=== PATIENT | female | born 1960 | race Two or more races ===

== ENCOUNTER → 2016-11-27 | Outpatient (CLI) | payer OTHER | END | disposition home or self-care (01) | LOC: LAB 16:36 | PROVIDERS: ATTEND Internal Medicine | DX: E11.9 Type 2 diabetes mellitus without complications (principal) | CPT/HCPCS: 36415; 83036 ==

== ENCOUNTER → 2017-03-02 | Outpatient (CLI) | payer OTHER ==
[2017-03-02 07:43] LABS: Albumin 3.3 g/dL (3.4-5.0); Bilirubin, Total 0.3 mg/dL (0.2-1.0); Calcium 8.5 mg/dL (8.5-10.1); Potassium 3.9 mmol/L (3.5-5.1); Total Protein 7.8 g/dL (6.4-8.2)
[2017-03-02 07:45] LABS: Basophils # (auto) 0.1 uL; Basophils % (auto) 0.8 % (0.0-2.0); Eosinophils # (auto) 0.2 uL; Eosinophils % (auto) 1.8 % (0.0-7.0); Hematocrit 41.2 % (36.0-46.0); Hemoglobin 14.1 g/dL (12.2-16.2); Lymphocytes # (auto) 3.3 uL; Lymphocytes % (auto) 35.6 % (10.0-50.0); Mean Corpuscular Hemoglobin 29.8 pg (28.0-32.0); Mean Corpuscular Hgb Conc. 34.3 g/dL (32.0-36.0); Mean Corpuscular Volume 86.6 fL (80.0-100.0); Mean Platelet Volume 8.8 fL (7.4-10.4); Monocytes # (auto) 0.4 uL; Monocytes % (auto) 4.2 % (0.0-12.0); Neutrophils # (auto) 5.3 uL; Neutrophils % (auto) 57.6 % (37.0-80.0); Platelet Count (auto) 252 10^3/uL (140-450); Red Cell Distribution Width 13.8 % (11.6-16.0); White Blood Cell 9.2 10^3/uL (4.4-10.8)
[2017-03-02 08:05] LABS: Urine Bilirubin Negative (Negative); Urine Blood Negative /uL (Negative); Urine Color Yellow (Yellow); Urine Glucose Normal (Normal); Urine Ketone Negative (Negative); Urine Nitrite Negative (Negative); Urine RBC 12 /hpf (0 - 4); Urine Squamous Epithelial Cell FEW /hpf (<5); Urine Urobilinogen Normal (Negative)
== END | disposition home or self-care (01) ==
LOC: LAB 06:36
PROVIDERS: ATTEND Internal Medicine
DX: E11.9 Type 2 diabetes mellitus without complications (principal); E11.40 Type 2 diabetes mellitus with diabetic neuropathy, unspecified
CPT/HCPCS: 36415; 80053; 80061; 81001; 82043; 82607; 83036; 84439; 84443; 85025; 85652

== ENCOUNTER → 2017-06-25 | Outpatient (CLI) | payer OTHER | END | disposition home or self-care (01) | LOC: LAB 15:13 | PROVIDERS: ATTEND Internal Medicine | DX: E10.9 Type 1 diabetes mellitus without complications (principal) | CPT/HCPCS: 36415; 83036; 84439; 84443 ==

== ENCOUNTER → 2018-11-01 | Outpatient (CLI) | payer OTHER ==
[2018-11-01 17:02] LABS: Alanine Aminotransferase 46 U/L (13-56); Aspartate Aminotransferase 38 U/L (15-37)
[2018-11-01 17:10] LABS: Free T4 (Free Thyroxine) 1.07 ng/dL (0.89-1.76)
[2018-11-01 17:11] LABS: Follicle Stimulating Hormone 76.56 IU/L (SEE BELOW)
== END | disposition home or self-care (01) ==
LOC: LAB 16:06
PROVIDERS: ATTEND Internal Medicine
DX: E03.9 Hypothyroidism, unspecified (principal); K76.0 Fatty (change of) liver, not elsewhere classified; E11.9 Type 2 diabetes mellitus without complications; R00.2 Palpitations
CPT/HCPCS: 36415; 83001; 83036; 84439; 84443; 84450; 84460

== ENCOUNTER → 2019-02-03 | Outpatient (CLI) | payer OTHER ==
[2019-02-03 08:31] LABS: INR 0.97 (0.9-1.15); Partial Thromboplastin Time 28.3 sec (23.78-33.04); Prothrombin Time 10.4 sec (9.27-12.13)
[2019-02-03 08:37] LABS: Urine Bacteria NONE SEEN /hpf (None Seen); Urine Blood Negative /uL (Negative); Urine Specific Gravity 1.003 (1.001-1.035); Urine WBC 11 /hpf (0 - 5)
[2019-02-03 09:01] LABS: Potassium 3.7 mmol/L (3.5-5.1)
[2019-02-03 09:12] LABS: Free T4 (Free Thyroxine) 1.13 ng/dL (0.89-1.76)
[2019-02-03 09:15] LABS: Albumin 3.6 g/dL (3.4-5.0); BUN/Creatinine Ratio 13.8; Bilirubin, Total 0.4 mg/dL (0.2-1.0); Calcium 9.2 mg/dL (8.5-10.1); Total Protein 8.4 g/dL (6.4-8.2)
[2019-02-03 11:12] LABS: Basophils # (auto) 0 uL; Basophils % (auto) 0.4 % (0.0-2.0); Eosinophils # (auto) 0.1 uL; Eosinophils % (auto) 1.2 % (0.0-7.0); Hematocrit 44.8 % (36.0-46.0); Hemoglobin 15.2 g/dL (12.2-16.2); Lymphocytes # (auto) 3.8 uL; Lymphocytes % (auto) 41.7 % (10.0-50.0); Mean Corpuscular Volume 88.2 fL (80.0-100.0); Monocytes # (auto) 0.4 uL; Monocytes % (auto) 4.2 % (0.0-12.0); Neutrophils # (auto) 4.7 uL; Neutrophils % (auto) 52.5 % (37.0-80.0); Platelet Count (auto) 272 10^3/uL (140-450); Red Blood Cells 5.08 10^6/uL (4.0-5.20); Red Cell Distribution Width 13.4 % (11.8-14.3)
== END | disposition home or self-care (01) ==
LOC: LAB 07:10
PROVIDERS: ATTEND Internal Medicine
DX: E11.42 Type 2 diabetes mellitus with diabetic polyneuropathy (principal); K76.0 Fatty (change of) liver, not elsewhere classified
CPT/HCPCS: 36415; 80053; 80061; 81001; 82043; 82607; 83036; 84439; 84443; 85025; 85610; 85652; 85730

== ENCOUNTER → 2019-06-24 | Outpatient (CLI) | payer OTHER ==
[2019-06-24 10:46] LABS: Potassium 3.8 mmol/L (3.5-5.1)
[2019-06-24 10:53] LABS: Albumin 3.4 g/dL (3.4-5.0); BUN/Creatinine Ratio 12.7; Bilirubin, Total 0.4 mg/dL (0.2-1.0); Calcium 8.7 mg/dL (8.5-10.1)
== END | disposition home or self-care (01) ==
LOC: LAB 07:59
PROVIDERS: ATTEND Internal Medicine
DX: E03.9 Hypothyroidism, unspecified (principal); E11.9 Type 2 diabetes mellitus without complications; E78.00 Pure hypercholesterolemia, unspecified
CPT/HCPCS: 36415; 80053; 83036; 83721; 84439; 84443

== ENCOUNTER 2019-09-30 08:12 | Day surgery (SDC) | payer OTHER ==
[2019-09-26 11:13] LABS: Basophils # (auto) 0.1 uL; Basophils % (auto) 0.9 % (0.0-2.0); Eosinophils # (auto) 0.1 uL; Eosinophils % (auto) 1.3 % (0.0-7.0); Hematocrit 43.3 % (36.0-46.0); Hemoglobin 14.8 g/dL (12.2-16.2); Lymphocytes # (auto) 2.8 uL; Lymphocytes % (auto) 27.6 % (10.0-50.0); Mean Corpuscular Hgb Conc. 34.1 g/dL (32.0-36.0); Mean Corpuscular Volume 88.2 fL (80.0-100.0); Monocytes # (auto) 0.6 uL; Monocytes % (auto) 5.5 % (0.0-12.0); Neutrophils # (auto) 6.5 uL; Neutrophils % (auto) 64.7 % (37.0-80.0); Platelet Count (auto) 250 10^3/uL (140-450); Red Blood Cells 4.91 10^6/uL (4.0-5.20); Red Cell Distribution Width 13.8 % (11.8-14.3)
[2019-09-26 11:35] LABS: INR 0.95 (0.9-1.15); Partial Thromboplastin Time 27.1 sec (23.64-32.05)
[~2019-09-30] VITALS: Ht 154.9 cm; Wt 79.4 kg
[~2019-09-30 08:12] MED LIST: ASPI-404 PO; LEVO50TA7 PO; METF-372 PO; PRAV20TA3 PO
[2019-09-30] MEDS ORDERED: NALOXONE HCL 0.4 MG/ML VIAL ONE (08:41)
[2019-09-30] MEDS ORDERED: SODIUM CHLORIDE LOCK 10 ML ONE (08:41)
[2019-09-30] MEDS ORDERED: FLUMAZENIL 0.1 MG/ML INJ 10ML MDV IV ONE (08:41)
[2019-09-30] MEDS ORDERED: diphenhdrAMINE HCL 50 MG/1 ML VL ONE (08:42)
[2019-09-30] MEDS: MIDAZOLAM HCL 5 MG/ML-1ML VIAL ONE ×2 (08:54→08:58)
[2019-09-30] MEDS: fentaNYL CITRATE 100 MCG/2 ML VL ONE ×2 (08:54→08:58)
[2019-09-30 09:50] VITALS: BP 129/69
== END 2019-09-30 10:00 | disposition home or self-care (01) ==
LOC: GI 08:12
PROVIDERS: ATTEND Internal Medicine Gastroenterology
DX: Z12.11 Encounter for screening for malignant neoplasm of colon (principal); D12.3 Benign neoplasm of transverse colon; E66.9 Obesity, unspecified; E11.9 Type 2 diabetes mellitus without complications; Z98.891 History of uterine scar from previous surgery; Z68.33 Body mass index [BMI] 33.0-33.9, adult; Z79.84 Long term (current) use of oral hypoglycemic drugs; Z79.82 Long term (current) use of aspirin; Z79.899 Other long term (current) drug therapy
CPT/HCPCS: 36415; 45380; 82962; 85025; 85610; 85730; 88305; J1200; J2250; J3010; J7030; 99152

== ENCOUNTER → 2020-01-09 | Outpatient (CLI) | payer OTHER ==
[2020-01-09 10:14] LABS: Basophils # (auto) 0.1 uL; Basophils % (auto) 0.5 % (0.0-2.0); Eosinophils # (auto) 0.1 uL; Eosinophils % (auto) 0.7 % (0.0-7.0); Hematocrit 43.9 % (36.0-46.0); Hemoglobin 14.8 g/dL (12.2-16.2); Lymphocytes # (auto) 3.6 uL; Lymphocytes % (auto) 37.5 % (10.0-50.0); Mean Corpuscular Hemoglobin 29.7 pg (28.0-32.0); Mean Corpuscular Hgb Conc. 33.6 g/dL (32.0-36.0); Mean Corpuscular Volume 88.3 fL (80.0-100.0); Monocytes # (auto) 0.4 uL; Monocytes % (auto) 4.2 % (0.0-12.0); Neutrophils # (auto) 5.5 uL; Neutrophils % (auto) 57.1 % (37.0-80.0); Nucleated Red Blood Cells % 0.2 %; Platelet Count (auto) 261 10^3/uL (140-450); Red Blood Cells 4.97 10^6/uL (4.0-5.20); Red Cell Distribution Width 14.2 % (11.8-14.3); White Blood Cell 9.7 10^3/uL (4.4-10.8)
[2020-01-09 10:32] LABS: Albumin 3.5 g/dL (3.4-5.0); Potassium 4.1 mmol/L (3.5-5.1)
[2020-01-09 10:43] LABS: BUN/Creatinine Ratio 15.6; Bilirubin, Total 0.4 mg/dL (0.2-1.0); Free T4 (Free Thyroxine) 1.03 ng/dL (0.89-1.76); Total Protein 8.3 g/dL (6.4-8.2)
[2020-01-09 13:37] LABS: Urine Bacteria FEW /hpf (None Seen); Urine Blood Negative /uL (Negative); Urine Specific Gravity 1.006 (1.001-1.035); Urine WBC 3 /hpf (0 - 5)
== END | disposition home or self-care (01) ==
LOC: LAB 09:42
PROVIDERS: ATTEND Internal Medicine
DX: E11.40 Type 2 diabetes mellitus with diabetic neuropathy, unspecified (principal); E03.9 Hypothyroidism, unspecified
CPT/HCPCS: 36415; 80053; 80061; 81001; 82043; 82607; 83036; 84439; 84443; 85025; 85652

== ENCOUNTER → 2020-04-27 | Outpatient (CLI) | payer OTHER | END | disposition home or self-care (01) | LOC: LAB 07:04 | PROVIDERS: ATTEND Internal Medicine | DX: E11.42 Type 2 diabetes mellitus with diabetic polyneuropathy (principal); M25.50 Pain in unspecified joint | CPT/HCPCS: 36415; 83036; 84550; 86200 ==

== ENCOUNTER → 2020-08-28 | Outpatient (CLI) | payer OTHER ==
[~2020-08-28] MED LIST changes: -ASPI-404 PO; +ASPI-543 PO
== END | disposition home or self-care (01) ==
LOC: LAB 07:05
PROVIDERS: ATTEND Internal Medicine
DX: E11.9 Type 2 diabetes mellitus without complications (principal)
CPT/HCPCS: 36415; 83036

== ENCOUNTER → 2021-03-25 | Outpatient (CLI) | payer OTHER ==
[2021-03-25 07:43] LABS: Basophils # (auto) 0 10 ^3/uL (0-0.2); Basophils % (auto) 0.4 % (0.0-2.0); Eosinophils # (auto) 0.1 10 ^3/uL (0-0.8); Eosinophils % (auto) 1.2 % (0.0-7.0); Hematocrit 41.5 % (36.0-46.0); Hemoglobin 14.2 g/dL (12.2-16.2); Lymphocytes # (auto) 3.2 10 ^3/uL (0.4-5.4); Lymphocytes % (auto) 41.6 % (10.0-50.0); Mean Corpuscular Hemoglobin 30.1 pg (28.0-32.0); Mean Corpuscular Hgb Conc. 34.1 g/dL (32.0-36.0); Mean Corpuscular Volume 88.3 fL (80.0-100.0); Monocytes # (auto) 0.4 10 ^3/uL (0-1.3); Monocytes % (auto) 5.2 % (0.0-12.0); Neutrophils # (auto) 3.9 10 ^3/uL (1.6-8.6); Neutrophils % (auto) 51.6 % (37.0-80.0); Nucleated Red Blood Cells % 0.1 %; Platelet Count (auto) 240 10^3/uL (140-450); Red Cell Distribution Width 13.7 % (11.8-14.3); White Blood Cell 7.6 10^3/uL (4.4-10.8)
[2021-03-25 07:54] LABS: Urine Bacteria NONE SEEN /hpf (None Seen); Urine Blood Negative /uL (Negative); Urine Specific Gravity 1.008 (1.001-1.035); Urine WBC 10 /hpf (0 - 5)
[2021-03-25 08:46] LABS: Albumin 3.5 g/dL (3.4-5.0); Potassium 3.9 mmol/L (3.5-5.1)
[2021-03-25 08:53] LABS: BUN/Creatinine Ratio 13.6; Bilirubin, Total 0.4 mg/dL (0.2-1.0); Calcium 8.7 mg/dL (8.5-10.1)
[2021-03-25 10:50] LABS: Free T4 (Free Thyroxine) 1.18 ng/dL (0.89-1.76)
== END | disposition home or self-care (01) ==
LOC: LAB 07:04
PROVIDERS: ATTEND Internal Medicine
DX: E11.9 Type 2 diabetes mellitus without complications (principal); I10 Essential (primary) hypertension; E03.9 Hypothyroidism, unspecified
CPT/HCPCS: 36415; 80053; 80061; 81001; 82043; 82607; 83036; 84439; 84443; 85025; 85652

== ENCOUNTER → 2021-12-30 | Outpatient (CLI) | payer OTHER ==
[2021-12-30 08:39] LABS: Potassium 4.1 mmol/L (3.5-5.1)
[2021-12-30 08:52] LABS: Albumin 3.6 g/dL (3.4-5.0); BUN/Creatinine Ratio 10.9; Bilirubin, Total 0.4 mg/dL (0.2-1.0); Calcium 9.1 mg/dL (8.5-10.1); Total Protein 8.1 g/dL (6.4-8.2)
== END | disposition home or self-care (01) ==
LOC: LAB 06:35
PROVIDERS: ATTEND Internal Medicine
DX: E11.9 Type 2 diabetes mellitus without complications (principal); E03.9 Hypothyroidism, unspecified
CPT/HCPCS: 36415; 80053; 83036; 84439; 84443

== ENCOUNTER → 2022-02-14 | Outpatient (CLI) | payer OTHER | END | disposition home or self-care (01) | LOC: LAB 16:09 | PROVIDERS: ATTEND Internal Medicine | DX: E11.9 Type 2 diabetes mellitus without complications (principal); E03.9 Hypothyroidism, unspecified | CPT/HCPCS: 36415; 83036; 84439; 84443 ==

== ENCOUNTER → 2022-06-03 | Outpatient (CLI) | payer OTHER ==
[2022-06-03 07:13] LABS: Basophils # (auto) 0 10 ^3/uL (0-0.2); Basophils % (auto) 0.6 % (0.0-2.0); Eosinophils # (auto) 0.1 10 ^3/uL (0-0.8); Eosinophils % (auto) 1.3 % (0.0-7.0); Lymphocytes # (auto) 2.6 10 ^3/uL (0.4-5.4); Lymphocytes % (auto) 34.7 % (10.0-50.0); Mean Corpuscular Hgb Conc. 33.3 g/dL (32.0-36.0); Mean Corpuscular Volume 87.3 fL (80.0-100.0); Monocytes # (auto) 0.3 10 ^3/uL (0-1.3); Monocytes % (auto) 4.4 % (0.0-12.0); Neutrophils # (auto) 4.4 10 ^3/uL (1.6-8.6); Nucleated Red Blood Cells % 0.1 %; Red Blood Cells 4.81 10^6/uL (4.0-5.20); Red Cell Distribution Width 13.8 % (11.8-14.3); White Blood Cell 7.5 10^3/uL (4.4-10.8)
[2022-06-03 07:55] LABS: Urine Bacteria NONE SEEN /hpf (None Seen); Urine Blood Negative /uL (Negative); Urine Specific Gravity 1.014 (1.001-1.035); Urine WBC 1 /hpf (0 - 5)
[2022-06-03 09:47] LABS: Free T4 (Free Thyroxine) 1.23 ng/dL (0.89-1.76)
[2022-06-03 15:49] LABS: Potassium 4.1 mmol/L (3.5-5.1)
[2022-06-03 16:08] LABS: Albumin 3.4 g/dL (3.4-5.0); BUN/Creatinine Ratio 14.7; Bilirubin, Total 0.5 mg/dL (0.2-1.0); Total Protein 7.9 g/dL (6.4-8.2)
== END | disposition home or self-care (01) ==
LOC: LAB 06:47
PROVIDERS: ATTEND Internal Medicine
DX: E11.40 Type 2 diabetes mellitus with diabetic neuropathy, unspecified (principal)
CPT/HCPCS: 36415; 80053; 80061; 81001; 82043; 82607; 83036; 84439; 84443; 85025; 85652

== ENCOUNTER → 2023-03-12 | Outpatient (CLI) | payer OTHER ==
[2023-03-12 07:56] LABS: Albumin 3.4 g/dL (3.4-5.0); BUN/Creatinine Ratio 16.7 (10.0-20.0); Calcium 9.3 mg/dL (8.5-10.1); Potassium 3.9 mmol/L (3.5-5.1)
[2023-03-12 08:08] LABS: Bilirubin, Total 0.4 mg/dL (0.2-1.0); Total Protein 8.5 g/dL (6.4-8.2)
== END | disposition home or self-care (01) ==
LOC: LAB 06:33
PROVIDERS: ATTEND Internal Medicine
DX: E11.9 Type 2 diabetes mellitus without complications (principal); K76.0 Fatty (change of) liver, not elsewhere classified
CPT/HCPCS: 36415; 80053; 83036

== ENCOUNTER → 2023-09-09 | Outpatient (CLI) | payer OTHER ==
[2023-09-09 07:23] LABS: Basophils # (auto) 0 10 ^3/uL (0-0.2); Basophils % (auto) 0.8 % (0.0-2.0); Eosinophils # (auto) 0.2 10 ^3/uL (0-0.8); Eosinophils % (auto) 3.2 % (0.0-7.0); Hematocrit 39.4 % (36.0-46.0); Hemoglobin 13.5 g/dL (12.2-16.2); Lymphocytes # (auto) 2.3 10 ^3/uL (0.4-5.4); Lymphocytes % (auto) 37.6 % (10.0-50.0); Mean Corpuscular Hemoglobin 30.4 pg (28.0-32.0); Mean Corpuscular Hgb Conc. 34.3 g/dL (32.0-36.0); Mean Corpuscular Volume 88.7 fL (80.0-100.0); Monocytes # (auto) 0.3 10 ^3/uL (0-1.3); Monocytes % (auto) 5.2 % (0.0-12.0); Neutrophils # (auto) 3.3 10 ^3/uL (1.6-8.6); Neutrophils % (auto) 53.2 % (37.0-80.0); Red Blood Cells 4.45 10^6/uL (4.0-5.20); Red Cell Distribution Width 14.2 % (11.8-14.3); Urine Bacteria MOD /hpf (None Seen); Urine Blood Negative /uL (Negative); Urine Clarity Clear (Clear); Urine Color Colorless (Yellow); Urine Protein, UAD Negative (Negative); Urine Specific Gravity 1.004 (1.001-1.035); Urine Urobilinogen Normal (Negative); Urine WBC 17 /hpf (0 - 5); Urine pH 6.5 (5.0-8.0); White Blood Cell 6.1 10^3/uL (4.4-10.8)
[2023-09-09 07:43] LABS: Alanine Aminotransferase 60 U/L (7-40); Alkaline Phosphatase 219 U/L (46-116); Anion Gap 8 (5-15); BUN/Creatinine Ratio 9.7 (10.0-20.0); Blood Urea Nitrogen 7 mg/dL (9-23); Calcium 9.1 mg/dL (8.5-10.1); Carbon Dioxide 24 mmol/L (20-30); Chloride 102 mmol/L (98-107); Glucose 147 mg/dL (74-106); LDL Cholesterol 65 mg/dL (< 100); Sodium 134 mmol/L (136-145); Triglycerides 114 mg/dL (< 150)
[2023-09-09 07:44] LABS: Albumin 4.1 g/dL (3.2-4.8); Aspartate Aminotransferase 72 U/L (13-40); Cholesterol 151 mg/dL (< 200); HDL Cholesterol 67 mg/dL (40-59)
[2023-09-09 07:45] LABS: Bilirubin, Total 0.7 mg/dL (0.2-1.0); Total Protein 7.6 g/dL (5.7-8.2)
[2023-09-09 07:51] LABS: Erythrocyte Sedimentation Rate 1 mm/hr (0-20); Free T4 (Free Thyroxine) 1.09 ng/dL (0.89-1.76)
== END | disposition home or self-care (01) ==
LOC: LAB 06:30
PROVIDERS: ATTEND Internal Medicine
DX: E11.9 Type 2 diabetes mellitus without complications (principal)
CPT/HCPCS: 36415; 80053; 80061; 81001; 82043; 82607; 83036; 84439; 84443; 85025; 85652

== ENCOUNTER → 2024-03-31 | Outpatient (CLI) | payer OTHER ==
[2024-03-31 07:24] LABS: Basophils # (auto) 0 10 ^3/uL (0-0.2); Basophils % (auto) 0.6 % (0.0-2.0); Eosinophils # (auto) 0.1 10 ^3/uL (0-0.8); Eosinophils % (auto) 1.8 % (0.0-7.0); Hematocrit 41.2 % (36.0-46.0); Hemoglobin 13.6 g/dL (12.2-16.2); Lymphocytes # (auto) 2.3 10 ^3/uL (0.4-5.4); Lymphocytes % (auto) 33.5 % (10.0-50.0); Mean Corpuscular Hemoglobin 29.3 pg (28.0-32.0); Mean Corpuscular Hgb Conc. 33.1 g/dL (32.0-36.0); Mean Corpuscular Volume 88.5 fL (80.0-100.0); Monocytes # (auto) 0.4 10 ^3/uL (0-1.3); Monocytes % (auto) 5.2 % (0.0-12.0); Neutrophils % (auto) 58.9 % (37.0-80.0); Nucleated Red Blood Cells % 0.1 %; Red Blood Cells 4.65 10^6/uL (4.0-5.20); White Blood Cell 6.8 10^3/uL (4.4-10.8)
[2024-03-31 07:39] LABS: Urine Bacteria FEW /hpf (None Seen); Urine Blood Negative /uL (Negative); Urine Clarity Clear (Clear); Urine Color Colorless (Yellow); Urine Protein, UAD Negative (Negative); Urine Specific Gravity 1.003 (1.001-1.035); Urine Urobilinogen Normal (Negative); Urine WBC <1 /hpf (0 - 5); Urine pH 6.5 (5.0-9.0)
[2024-03-31 07:56] LABS: Creatinine, Urine 11.27 mg/dL (30.0-125.0)
[2024-03-31 07:58] LABS: Micro Albumin < 3.0 mg/L (<30.0)
[2024-03-31 08:00] LABS: Alanine Aminotransferase 54 U/L (7-40); Albumin 4.3 g/dL (3.2-4.8); Alkaline Phosphatase 217 U/L (46-116); Anion Gap 10 (5-15); Aspartate Aminotransferase 75 U/L (13-40); BUN/Creatinine Ratio 10.4 (10.0-20.0); Blood Urea Nitrogen 7 mg/dL (9-23); Calcium 9.6 mg/dL (8.5-10.1); Carbon Dioxide 21 mmol/L (20-30); Chloride 102 mmol/L (98-107); Cholesterol 175 mg/dL (< 200); Glucose 139 mg/dL (74-106); HDL Cholesterol 78 mg/dL (40-59); LDL Cholesterol 77 mg/dL (< 100); Potassium 4.1 mmol/L (3.5-5.1); Sodium 133 mmol/L (136-145); Triglycerides 102 mg/dL (< 150)
[2024-03-31 08:01] LABS: Bilirubin, Total 0.8 mg/dL (0.2-1.0); Free T4 (Free Thyroxine) 1.08 ng/dL (0.89-1.76); Total Protein 7.8 g/dL (5.7-8.2)
[2024-03-31 08:12] LABS: Microalb/Creat Ratio, Urine < 26.00
[2024-03-31 08:39] LABS: Erythrocyte Sedimentation Rate 11 mm/hr (0-20)
== END | disposition home or self-care (01) ==
LOC: LAB 06:26
PROVIDERS: ATTEND Internal Medicine
DX: I10 Essential (primary) hypertension (principal); E11.9 Type 2 diabetes mellitus without complications
CPT/HCPCS: 36415; 80053; 80061; 81001; 82043; 82570; 82607; 83036; 84439; 84443; 85025; 85652

== ENCOUNTER → 2024-04-26 | Outpatient (CLI) | payer OTHER ==
[2024-04-26 16:15] LABS: INR 1.05 (0.9-1.15); Prothrombin Time 11.1 sec (9.3-11.8)
[2024-04-26 16:49] LABS: Alanine Aminotransferase 39 U/L (7-40); Albumin 4.1 g/dL (3.2-4.8); Alkaline Phosphatase 222 U/L (46-116); Anion Gap 8 (5-15); Aspartate Aminotransferase 46 U/L (13-40); BUN/Creatinine Ratio 14.5 (10.0-20.0); Bilirubin, Total 0.3 mg/dL (0.2-1.0); Blood Urea Nitrogen 9 mg/dL (9-23); Calcium 9.3 mg/dL (8.5-10.1); Carbon Dioxide 25 mmol/L (20-30); Chloride 103 mmol/L (98-107); Glucose 134 mg/dL (74-106); Potassium 3.9 mmol/L (3.5-5.1); Sodium 136 mmol/L (136-145); Total Protein 7.5 g/dL (5.7-8.2)
== END | disposition home or self-care (01) ==
LOC: LAB 15:48
PROVIDERS: ATTEND Internal Medicine
DX: E11.9 Type 2 diabetes mellitus without complications (principal); R79.89 Other specified abnormal findings of blood chemistry
CPT/HCPCS: 36415; 80053; 85610

== ENCOUNTER 2024-09-16 07:20 | Day surgery (SDC) | payer BC, OTHER ==
[2024-09-13 09:58] LABS: Urine Bacteria None Seen /hpf (None Seen)
[2024-09-13 10:13] LABS: Urine Blood Negative /uL (Negative); Urine Clarity Clear (Clear); Urine Color Colorless (Yellow); Urine Protein, UAD Negative (Negative); Urine Specific Gravity 1.002 (1.001-1.035); Urine Urobilinogen Normal (Negative); Urine WBC 1 /hpf (0 - 5)
[2024-09-13 10:17] LABS: Basophils # (auto) 0 10 ^3/uL (0-0.2); Basophils % (auto) 0.4 % (0.0-2.0); Eosinophils # (auto) 0.1 10 ^3/uL (0-0.8); Eosinophils % (auto) 1.9 % (0.0-7.0); Hematocrit 40.7 % (36.0-46.0); Hemoglobin 13.9 g/dL (12.2-16.2); Lymphocytes # (auto) 2.2 10 ^3/uL (0.4-5.4); Lymphocytes % (auto) 29.6 % (10.0-50.0); Mean Corpuscular Hemoglobin 30.4 pg (28.0-32.0); Mean Corpuscular Hgb Conc. 34.2 g/dL (32.0-36.0); Mean Corpuscular Volume 88.8 fL (80.0-100.0); Monocytes # (auto) 0.3 10 ^3/uL (0-1.3); Monocytes % (auto) 4.2 % (0.0-12.0); Neutrophils # (auto) 4.7 10 ^3/uL (1.6-8.6); Neutrophils % (auto) 63.9 % (37.0-80.0); Platelet Count (auto) 121 10^3/uL (140-450); Red Blood Cells 4.58 10^6/uL (4.0-5.20); Red Cell Distribution Width 14.9 % (11.8-14.3); White Blood Cell 7.3 10^3/uL (4.4-10.8)
[2024-09-13 10:33] LABS: Alanine Aminotransferase 51 U/L (7-40); Alkaline Phosphatase 221 U/L (46-116); Anion Gap 5 (5-15); Aspartate Aminotransferase 57 U/L (13-40); BUN/Creatinine Ratio 10.9 (10.0-20.0); Blood Urea Nitrogen 7 mg/dL (9-23); Calcium 9.4 mg/dL (8.7-10.4); Carbon Dioxide 26 mmol/L (20-31); Chloride 102 mmol/L (98-107); Glucose 133 mg/dL (74-106); Potassium 4.1 mmol/L (3.5-5.1); Sodium 133 mmol/L (136-145)
[2024-09-13 10:34] LABS: Bilirubin, Total 0.6 mg/dL (0.2-1.0); Total Protein 7.5 g/dL (5.7-8.2)
[2024-09-13 10:40] LABS: INR 1.08 (0.9-1.15); Partial Thromboplastin Time 27.5 SEC (24.5-34.5); Prothrombin Time 11.4 sec (9.3-11.8)
[~2024-09-16] VITALS: Ht 154.9 cm; Wt 74.8 kg
[2024-09-16] MEDS ORDERED: fentaNYL CITRATE 100 MCG/2 ML VL ONE (08:57)
[2024-09-16] MEDS ORDERED: PROPOFOL 10 MG/ML 20 ML IV ONE (08:58)
[2024-09-16 09:34] VITALS: RESP 17; TEMP 97.2; O2SAT 99
[2024-09-16 10:00] VITALS: BP 123/70; PULSE 81; RESP 16; O2SAT 95
== END 2024-09-16 10:14 | disposition home or self-care (01) ==
LOC: GI 07:20
PROVIDERS: ATTEND Specialist
DX: Z12.11 Encounter for screening for malignant neoplasm of colon (principal); K29.50 Unspecified chronic gastritis without bleeding; D12.1 Benign neoplasm of appendix; K64.8 Other hemorrhoids; I85.00 Esophageal varices without bleeding; E03.9 Hypothyroidism, unspecified; E11.9 Type 2 diabetes mellitus without complications; Z79.84 Long term (current) use of oral hypoglycemic drugs; Z79.890 Hormone replacement therapy; Z79.82 Long term (current) use of aspirin
CPT/HCPCS: 36415; 43239; 45380; 80053; 81001; 82962; 85025; 85610; 85730; 88305; 88312; 88342; J2704; J3010

== ENCOUNTER 2025-04-26 06:36 | Outpatient (CLI) | payer BC ==
[~2025-04-26] VITALS: Ht 154.9 cm; Wt 77.1 kg
[2025-04-26] MEDS: REGADENOSON 0.4 MG/5 ML SYRG IV ONE ×2 (09:03→09:12)
--- NOTE | 2025-04-26 12:54 | DVHSR ---
APPROVED REPORT Exam: Nuclear Stress Test Indication: chest pain BMI: 0 Medical History Medical History: HTN, HLD, HYPOTHYROIDISM, PERIPHERAL VARICOSITIES, OBESITY Allergies: No known drug allergies Stress Test Details Stress Test: Pharmacologic stress testing performed using 0.4 mg of regadenoson per 5 mL given IV ov er 10 seconds. HR Resting HR: 66 bpmMax Heart Rate (APMHR): 155.000522 bpm Max HR Achieved: 98 bpmTarget HR (85% APMHR): 131.518683 bpm % of APMHR: 63.23 Recovery HR: 79 bpm BP Resting BP: 131/70 mmHg Recovery BP: 133/75 mmHg ECG Resting ECG: Sinus Rhythm Clinical Reason for Termination: Completed protocol Stress ECG Conclusion lvef 87% normal perfusion scan no ischemia NM EXAM: Myocardial Perfusion REST/STRESS Imaging Protocol: Rest Tc-99m/Stress Tc-99m 1 day Resting Data Rest SPECT myocardial perfusion imaging was performed in supine position 45 minutes following the int ravenous injection of 10.0 mCi of Tc-99m Sestamibi. Time of rest injection: 07:45 Date: 04/26/2025 Time of rest imagin:30 Date: 04/26/2025 Administration Route: IV Administration Site: Left Hand Pharmacologic Stress Pharmacologic stress test was performed by injecting Regadenoson 0.4 mg IV push followed by the intra venous injection of 33.0 mCi of Tc-99m Sestamibi. Time of stress injection: 09:13 Date: 04/26/2025 Time of stress imagin:58 Date: 04/26/2025 Administration Route: IV Administration Site: Left Hand Gated Stress SPECT was performed 45 minutes after stress injection. The images were gated to evaluate regional wall motion and calculate left ventricular ejection fracti on. Stress only was performed in the Supine position. Nuclear Conclusion Nuclear Findings: negative for ischemia lvef 87% normal perfusion scan no ischemia
== END 2025-04-26 17:00 | disposition home or self-care (01) ==
LOC: XYW 06:36
PROVIDERS: ATTEND Internal Medicine
DX: R07.9 Chest pain, unspecified (principal); I10 Essential (primary) hypertension; E78.5 Hyperlipidemia, unspecified; E03.9 Hypothyroidism, unspecified; R06.02 Shortness of breath; I83.90 Asymptomatic varicose veins of unspecified lower extremity; E66.811 Obesity, class 1; Z68.33 Body mass index [BMI] 33.0-33.9, adult
CPT/HCPCS: 78452; 93017; A9500; J2785

== ENCOUNTER 2025-07-10 17:53 | Inpatient (IN) | payer BC ==
[~2025-07-10] VITALS: Ht 152.4 cm; Wt 80.5 kg
--- NOTE | 2025-07-10 18:23 | ED.PDOC ---
GI ASSESSMENT HPI Comments 65 year old female presents to the ED with a chief complaint of hematemesis onset today (07/10/25). Patient states she began experiencing hematemesis earlier today, with blood clots. Yesterday, patient began experiencing generalized weakness, nausea, melena, abdominal discomfort. PMHx thyroid disease, DM, HLD. Denies chest pain, fever, chills, diarrhea, dysuria, hematuria, dizziness, headache. No other symptoms or modifying factors present at this time. Chief Complaint: GI Bleed Time Seen by MD: 18:15 Reviewed Notes: Medications, Allergies Allergies: Coded Allergies: NO KNOWN ALLERGIES (Unverified , 09/26/19) Home Meds Reported Medications Pravastatin Sodium (PRAVACHOL TABLET) 20 Mg Tb, 1 TAB PO DAILY, #30 TAB 5 Refills 09/26/19 Aspirin (Aspir-Low) 81 Mg Tab, 81 MG PO DAILY for 30 Days, MG 09/26/19 Levothyroxine Sodium (Levothyroxine Sodium) 50 Mcg Tab, 50 MCG PO QAM for 30 Days, MCG 09/26/19 Metformin Hydrochloride (Metformin Hcl) 1,000 Mg Tab, 1 TAB PO BID, #60 TAB 5 Refills 09/26/19 Information Source: Patient, Spouse Mode of Arrival: Ambulatory Timing: Hours Duration: Since onset Prehospital treatment: None Vomitus: Bloody Stool: Black Severity: Moderate Recent: None Recent Hx of: None Pain Location: Diffuse Modifying Factors: Nothing Associated sign and symptoms: Nausea, Hematemesis, Abdominal Pain Past Medical History PAST MEDICAL HISTORY: DM, High Lipids, Thyroid Surgical History: Denies all surgeries SUBJECT SCIENTIFIC RESEARCH History: No Pertinent SUBJECT SCIENTIFIC RESEARCH History Family History Family History: Reviewed,noncontributory to illness, No family hx of Cancer, No family hx of DM, No family hx of Heart emiliano, No family hx of HTN, No family hx ofKidney emiliano, No family hx of Liver emiliano, No family hx of Lung emiliano, No family hx of Stroke Social History Smoker: Non-Smoker Alcohol: Denies ETOH Use Drugs: Denies Drug Use Lives In: Home Constitutional: denies: chills, diaphoresis, fatigue, fever, malaise, sweats, weakness, others EENTM: denies: blurred vision, double vision, ear bleeding, ear discharge, ear drainage, ear pain, ear ringing, eye pain, eye redness, hearing loss, mouth pain, mouth swelling, nasal discharge, nose bleeding, nose congestion, nose pain, photophobia, tearing, throat pain, throat swelling, voice changes, others Respiratory: denies: cough, hemoptysis, orthopnea, SOB at rest, shortness of breath, SOB with excertion, stridor, wheezing, others Cardiovascular: denies: chest pain, dizzy spells, diaphoresis, Dyspnea on exertion, edema, irregular heart beat, left arm pain, lightheadedness, palpitati ons, PND, syncope, others Gastrointestinal: reports: melena, nausea, rectal bleeding; denies: abdomen distended, abdominal pain, blood streaked bowels, constipated, diarrhea, dysphagia, difficulty swallowing, hematemesis, poor appetite, poor fluid intake, rectal pain, vomiting, others Genitourinary: denies: abnormal vagina bleeding, burning, dyspareunia, dysuria, flank pain, frequency, hematuria, incontinence, pain, , vagina discharge, urgency, others Neurological: reports: weakness; denies: dizziness, fainting, headache, left sided numbness, left sided weakness, numbness, paresthesia, pre-existing defi cit, right sided numbness, right sided weakness, seizure, speech problems, tingling, tremors, others Musculoskeletal: denies: back pain, gout, joint pain, joint swelling, muscle pain, muscle stiffness, neck pain, others Integumetry: denies: bruises, change in color, change in hair/nails, dryness, laceration, lesions, lumps, rash, wounds, others Allergic/Immunocompromised: denies: Difficulty Healing, Frequent Infections, Hives, Itching, others Hematologic/Lymphatic: denies: anemia, blood clots, easy bleeding, easy bruising, swollen glands, others Endocrine: denies: excessive hunger, excessive sweating, excessive thirst, excessive urination, flushing, intolerance to cold, intolerance to heat, unexplained weight gain, unexplained weight loss, others Psychiatric: denies: anxiety, bipolar disorder, depression, hopeless, panic disorder, schizophrenia, sleepless, suicidal, others All Other Systems: Reviewed and Negative Physical Exam General Appearance: Normal HEENT: Normal ENT Inspection, Pharynx Normal, TMs Normal Neck: Full Range of Motion, Non-Tender, Normal, Normal Inspection Respiratory: Chest Non-Tender, Lungs Clear, No Accessory Muscle Use, No Respiratory Distress, Normal Breath Sounds Cardiovascular: No Edema, No JVD, No Murmur, No Gallop, Normal Peripheral Pulses, Regular Rate/Rhythm Breast Exam: Deferred Gastrointestinal: No Organomegaly, Non Tender, No Pulsatile Mass, Normal Bowel Sounds, Soft Genitalia: Deferred Pelvic: Deferred Rectal: Deferred Extremities: No calf tenderness, Normal capillary refill, Normal inspection, Normal range of motion, Non-tender, No pedal edema Musculoskeletal : Apperance: Normal Neurologic: Alert, trombone slide assembler II-XII nml as Tested, No Motor Deficits, Normal Affect, Normal Mood, No Sensory Deficits Cerebellar Function: Normal Reflexes: Normal Skin: Dry, Normal Color, Warm Lymphatic: No Adenopathy Was a procedure done? Was a procedure done?: No GI differential Dx Differential Diagnosis: Appendicitis, Cholangitis, Cholecystitis, Diverticular disease, Esophageal rupture, Esophagitis, Gastritis/PUD, GI hemorrhage, Infl ammatory BD, Ischemic Bowel, Ischemic Bowel, Esophageal Varicies, Stress Ulcer X-Ray, Labs, Meds, VS Vital Signs Date Time Temp Pulse Resp B/P (MAP) Pulse Ox O2 Delivery O2 Flow Rate FiO2 07/10/25 17:57 106 07/10/25 17:53 97.2 114 18 94/49 98 97.2 Lab Test 07/10/25 19:16 Range/Units White Blood Count 20.7 H 4.4-10.8 10^3/uL Red Blood Count 2.79 L 4.0-5.20 10^6/uL Hemoglobin 8.0 L 12.2-16.2 g/dL Hematocrit 24.1 L 36.0-46.0 % Mean Corpuscular Volume 86.4 80.0-100.0 fL Mean Corpuscular Hemoglobin 28.7 28.0-32.0 pg Mean Corpuscular Hemoglobin Concent 33.2 32.0-36.0 g/dL Red Cell Distribution Width 16.2 H 11.8-14.3 % Platelet Count 221 140-450 10^3/uL Mean Platelet Volume 8.4 6.9-10.8 fL Neutrophils (%) (Auto) 63.7 37.0-80.0 % Lymphocytes (%) (Auto) 29.6 10.0-50.0 % Monocytes (%) (Auto) 5.6 0.0-12.0 % Eosinophils (%) (Auto) 0.5 0.0-7.0 % Basophils (%) (Auto) 0.6 0.0-2.0 % Neutrophils # (Auto) 13.2 H 1.6-8.6 10 ^3/uL Lymphocytes # (Auto) 6.1 H 0.4-5.4 10 ^3/uL Monocytes # (Auto) 1.1 0-1.3 10 ^3/uL Eosinophils # (Auto) 0.1 0-0.8 10 ^3/uL Basophils # (Auto) 0.1 0-0.2 10 ^3/uL Nucleated Red Blood Cells 0.2 % Sodium Level Pending Potassium Level Pending Chloride Level Pending Carbon Dioxide Level Pending Anion Gap Pending Blood Urea Nitrogen Pending Creatinine Pending Glomerular Filtration Rate Calc Pending BUN/Creatinine Ratio Pending Serum Glucose Pending Calcium Level Pending Total Bilirubin Pending Direct Bilirubin Pending Aspartate Amino Transferase (AST) Pending Alanine Aminotransferase (ALT) Pending Alkaline Phosphatase Pending Total Protein Pending Albumin Pending Lipase Pending X-Ray, Labs, Meds, VS Comment 65-year-old female here today with presentation consistent with upper GI bleeding and melena. Patient tachycardic with a heart rate in the low 100s and with a softer blood pressure with systolic in the 90s. Labs notable for a hemoglobin of 8.0 would a prior hemoglobin on May 10, 2025 of 13.3. Patient was given fluids, Protonix, Zofran, and will be admitted for upper GI bleed and GI consult and consideration of EGD/colo. Patient in agreement with the plan. Time of 1ST Reevaluation: 18:45 Reevaluation 1ST: Unchanged Patient Education/Counseling: Diagnosis, Treatment, Prognosis Family Education/Counseling: Diagnosis, Treatment, Prognosis SEPSIS Sepsis Screen Date sepsis recognized/suspect: Jul 10, 2025 Time Sepsis recognized/suspect: 1752 Recent Procedure: No On Antibiotic Therapy: No Respiratory Rate >20: No Heart Rate >90: Yes Temp<36 C (96.8 F) or >38.3 C: No SBP <90 or MAP <65 mmHG: No New Acute Mental Status Change: No Is the patient on CPAP, BIPAP,: No Physician Orders Electrocardigram (07/10/25 18:08) Type And Screen (07/10/25 19:05) Basic Metabolic Panel (07/10/25 19:05) Lipase (07/10/25 19:05) Hepatic Panel (07/10/25 19:05) Vital Signs Date Time Temp Pulse Resp B/P (MAP) Pulse Ox O2 Delivery O2 Flow Rate FiO2 07/10/25 17:57 106 07/10/25 17:53 97.2 114 18 94/49 98 97.2 Laboratory Tests Test 07/10/25 19:16 White Blood Count 20.7 10^3/uL (4.4-10.8) H Departure 1 Departure Time of Disposition: 20:00 Impression: Primary Impression: Upper GI bleed Additional Impressions: Vomiting blood Melena Anemia Disposition: ADMITTED INPATIENT Admit to: Tele Condition: Guarded Critical Care Note Critical Care Time?: Yes (35 min-critical care time only) Stability Stability form required: No Heart Score Heart Score: Heart Score Response (Comments) Value History N/A 0 EKG N/A 0 Age N/A 0 Risk Factors N/A 0 Troponin N/A 0 Total 0 I personally scribed for MAYTE ZALDIVAR MD ([email or web address]) on 07/10/25 at 18:23. Electronically submitted by Zaida Ocasio ([email or web address]). MAYTE ZALDIVAR MD Jul 10, 2025 18:23
[2025-07-10 19:31] LABS: Hematocrit 24.1 % (36.0-46.0); Hemoglobin 8.0 g/dL (12.2-16.2); Mean Corpuscular Hemoglobin 28.7 pg (28.0-32.0); Mean Corpuscular Volume 86.4 fL (80.0-100.0); Nucleated Red Blood Cells % 0.2 %
[2025-07-10] MEDS ORDERED: DEXTROSE (50%) 50ML SYRG IV PRN (20:15)
[2025-07-10] MEDS ORDERED: ONDANSETRON HCL 4 MG/2 ML VIAL IV PRN (20:15)
[2025-07-10 20:26] LABS: Alanine Aminotransferase 30 U/L (7-40); Albumin 3.4 g/dL (3.2-4.8); Alkaline Phosphatase 146 U/L (46-116); Anion Gap 10 (5-15); BUN/Creatinine Ratio 36.4 (10.0-20.0); Bilirubin, Total 0.3 mg/dL (0.2-1.0); Blood Urea Nitrogen 24 mg/dL (9-23); Calcium 8.5 mg/dL (8.7-10.4); Carbon Dioxide 23 mmol/L (20-31); Chloride 98 mmol/L (98-107); Glucose 237 mg/dL (74-106); Lipase 38 U/L (12-53); Potassium 4.4 mmol/L (3.5-5.1); Sodium 131 mmol/L (136-145); Total Protein 5.9 g/dL (5.7-8.2)
[2025-07-10] MEDS: SODIUM CHLORIDE 0.9% 1,000 ML IV ONE (20:33)
[2025-07-10] MEDS: PANTOPRAZOLE 40 MG/10 ML VIAL INJ IV ONE (20:33)
[2025-07-10] MEDS: ONDANSETRON HCL 4 MG/2 ML VIAL IV ONE (20:34)
[2025-07-10 20:38] LABS: Bilirubin, Direct 0.1 mg/dL (<0.3)
[2025-07-10 21:09] LABS: INR 1.06 (0.9-1.15); Partial Thromboplastin Time 22.4 SEC (24.5-34.5); Prothrombin Time 11.2 sec (9.3-11.8)
--- NOTE | 2025-07-10 21:26 | DVHHP2 ---
History of Present Illness Reason for Visit: GI bleed History of Present Illness 65-year-old female presents for evaluation of GI bleed. Patient reports having three episodes of hematemesis today. She also reports having dark stools over the past two days. Denies abdominal pain. Reports currently having nausea. No shortness a breath or chest pain. No other acute symptoms. Past Medical History Hypertension, dyslipidemia, thyroid, diabetes mellitus Past Surgical History Denies Family History Noncontributory Smoke: No ALCOHOL: none Drugs: None Lives: with Family Review of Systems Review of Systems Review of systems are currently negative otherwise addressed in HPI. Allergies: Coded Allergies: NO KNOWN ALLERGIES (Unverified , 09/26/19) Medications Current Medications Medications Dose Ordered Sig/Annie Route Start Time Stop Time Status Last Admin Dose Admin Pantoprazole Sodium 40 mg BID IV 07/10/25 22:00 UNV Diagnostic Test (Pha) 1 strip Q6HR 07/11/25 00:00 UNV Insulin Human Regular Q6HR SC 07/11/25 00:00 UNV Dextrose 50 ml UD PRN IV 07/10/25 20:15 UNV Ondansetron HCl 4 mg Q4HP PRN IV 07/10/25 20:15 UNV Exam Vital Signs Vital Signs Date Time Temp Pulse Resp B/P (MAP) Pulse Ox O2 Delivery O2 Flow Rate FiO2 07/10/25 17:57 106 07/10/25 17:53 97.2 18 94/49 98 97.2 Exam Gen: 65-year-old female in mild distress. Skin: Warm, dry, normal color and texture, no rash. HEENT: Normocephalic atraumatic, mucous membranes moist and pink. Neck: Cervical and supraclavicular nodes normal without enlargement, trachea is midline, thyroid gland is normal without masses. Pulmonary: Clear to auscultation and percussion bilaterally. Cardiac: Regular rate and rhythm. No murmur Abdomen: Soft, nontender, nondistended, bowel sounds present all 4 quadrants, no guarding, no rigidity, no organomegaly. Extremities: No cyanosis, clubbing, no edema Neuro: Cranial nerves II through XII grossly intact, normal affect and speech, no focal motor deficits. Labs/Xrays Labs Test 07/10/25 19:16 Range/Units White Blood Count 20.7 H 4.4-10.8 10^3/uL Red Blood Count 2.79 L 4.0-5.20 10^6/uL Hemoglobin 8.0 L 12.2-16.2 g/dL Hematocrit 24.1 L 36.0-46.0 % Mean Corpuscular Volume 86.4 80.0-100.0 fL Mean Corpuscular Hemoglobin 28.7 28.0-32.0 pg Mean Corpuscular Hemoglobin Concent 33.2 32.0-36.0 g/dL Red Cell Distribution Width 16.2 H 11.8-14.3 % Platelet Count 221 140-450 10^3/uL Mean Platelet Volume 8.4 6.9-10.8 fL Neutrophils (%) (Auto) 63.7 37.0-80.0 % Lymphocytes (%) (Auto) 29.6 10.0-50.0 % Monocytes (%) (Auto) 5.6 0.0-12.0 % Eosinophils (%) (Auto) 0.5 0.0-7.0 % Basophils (%) (Auto) 0.6 0.0-2.0 % Neutrophils # (Auto) 13.2 H 1.6-8.6 10 ^3/uL Lymphocytes # (Auto) 6.1 H 0.4-5.4 10 ^3/uL Monocytes # (Auto) 1.1 0-1.3 10 ^3/uL Eosinophils # (Auto) 0.1 0-0.8 10 ^3/uL Basophils # (Auto) 0.1 0-0.2 10 ^3/uL Nucleated Red Blood Cells 0.2 % Sodium Level 131 L 136-145 mmol/L Potassium Level 4.4 3.5-5.1 mmol/L Chloride Level 98 98-107 mmol/L Carbon Dioxide Level 23 20-31 mmol/L Anion Gap 10 5-15 Blood Urea Nitrogen 24 H 9-23 mg/dL Creatinine 0.66 0.550-1.02 mg/dL Glomerular Filtration Rate Calc 97 >90 mL/min BUN/Creatinine Ratio 36.4 H 10.0-20.0 Serum Glucose 237 H 74-106 mg/dL Calcium Level 8.5 L 8.7-10.4 mg/dL Total Bilirubin 0.3 0.2-1.0 mg/dL Direct Bilirubin 0.1 <0.3 mg/dL Aspartate Amino Transferase (AST) 36 13-40 U/L Alanine Aminotransferase (ALT) 30 7-40 U/L Alkaline Phosphatase 146 H 46-116 U/L Total Protein 5.9 5.7-8.2 g/dL Albumin 3.4 3.2-4.8 g/dL Lipase 38 12-53 U/L SEPSIS Sepsis Screen Date sepsis recognized/suspect: Jul 10, 2025 Time Sepsis recognized/suspect: 1752 Recent Procedure: No On Antibiotic Therapy: No Respiratory Rate >20: No Heart Rate >90: Yes Temp<36 C (96.8 F) or >38.3 C: No SBP <90 or MAP <65 mmHG: No New Acute Mental Status Change: No Is the patient on CPAP, BIPAP,: No Physician Orders Electrocardigram (07/10/25 18:08) Admit (07/10/25 20:06) PTPTT (07/10/25 20:08) Stool Occult Blood (07/10/25 20:08) Gastric Occult Blood (07/10/25 20:08) Pantoprazole (Protonix) (07/10/25 22:00) * Gi D[facility] Personal Service Representative (07/10/25 20:08) Glucose Blood (Accu-Chek Comfort Curve T (07/11/25 00:00) Insulin R (Human) (Insulin R) (07/11/25 00:00) Dextrose 50% Syringe (07/10/25 20:15) Ondansetron Hcl (Zofran) (07/10/25 20:15) Complete Blood Count (07/11/25 04:00) Comprehensive Metabolic Panel (07/11/25 04:00) Npo (Nothing By Mouth) Diet (07/11/25 Breakfast) Condition: Stable (07/10/25 20:08) Bedrest With Bathroom Privileg (07/10/25 20:08) Sodium Chloride 0.9% (07/10/25 20:15) Vital Signs Date Time Temp Pulse Resp B/P (MAP) Pulse Ox O2 Delivery O2 Flow Rate FiO2 07/10/25 17:57 106 07/10/25 17:53 97.2 114 18 94/49 98 97.2 Laboratory Tests Test 07/10/25 19:16 White Blood Count 20.7 10^3/uL (4.4-10.8) H Medications Medications Dose Ordered Sig/Annie Route Start Time Stop Time Status Last Admin Dose Admin Ondansetron HCl 4 mg ONCE ONCE IV 07/10/25 20:00 07/10/25 20:02 DC 07/10/25 20:34 4 MG Pantoprazole Sodium 80 mg ONCE ONCE IV 07/10/25 20:00 07/10/25 20:02 DC 07/10/25 20:33 80 MG Sodium Chloride 1,000 ml @ 1,000 mls/hr Q1H ONCE IV 07/10/25 20:00 07/10/25 20:59 DC 07/10/25 20:33 1,000 MLS/HR Assessment/Plan Assessment/Plan Assessment GI bleed Diabetes mellitus Anemia Plan Admit the patient to [facility] to the hospitalist GI consult NPO CT abdomen pending Protonix drip Continue treatment per orders. Plan discussed with: Patient My Orders Orders - ALLISON IBARRA Procedure Category Date Status Time Admit ADMIT 07/10/25 Transmitted 20:06 PTPTT LAB 07/10/25 In Process 20:08 Stool Occult Blood LAB 07/10/25 Logged 20:08 Gastric Occult Blood LAB 07/10/25 Logged 20:08 Pantoprazole PHA 07/10/25 Logged (Protonix) 22:00 * Gi D[facility] Personal Service Representative CONS 07/10/25 Transmitted 20:08 Glucose Blood PHA 07/11/25 Logged (Accu-Chek Comfort 00:00 Insulin R (Human) PHA 07/11/25 Logged (Insulin R) 00:00 Dextrose 50% Syringe PHA 07/10/25 Logged 20:15 Ondansetron Hcl PHA 07/10/25 Logged (Zofran) 20:15 Complete Blood Count LAB 07/11/25 Verified 04:00 Comprehensive LAB 07/11/25 Verified Metabolic Panel 04:00 Npo (Nothing By DIET 07/11/25 Transmitted Mouth) Diet Breakfast Condition: Stable IKE 07/10/25 In Process 20:08 Bedrest With Bathroom IKE 07/10/25 In Process Privileg 20:08 Sodium Chloride 0.9% PHA 07/10/25 Logged 20:15 Date of Service: Jul 10, 2025 Billing Provider: ALLISON IBARRA Common Visit Codes: [id number] INP/OBS CARE (HIGH) ALLISON IBARRA AGACN Jul 10, 2025 21:26
[2025-07-10] MEDS ORDERED: PANTOPRAZOLE 40 MG/10 ML VIAL INJ IV SCH (22:00)
--- NOTE | 2025-07-10 22:43 | DVH ---
Exam: CT CT AB PEL WO CON-NO ORAL OR IV History: gi bleed Comparison Study: None TECHNIQUE: Multidetector CT of the abdomen and pelvis was performed from lung bases to pubic symphysi s. Imaging was performed without IV contrast. Axial, coronal, and sagittal multiplanar reformats were obtained from the axial data set by the technologist. RADIATION DOSE: CTDI vol 20.9 mGy. DLP 1203.61 mGy.cm Findings: Limited evaluation of the solid organs in the absence of IV contrast. Liver: Nodular hepatic contour. Spleen: Small splenule. Pancreas: Unremarkable. Gallbladder: Cholelithiasis. Adrenals: Unremarkable Kidneys: Unremarkable. Pelvic Viscera: Unremarkable. Vasculature: Mild atherosclerotic aortoiliac calcifications. Retroperitoneum: Trace mesenteric stranding. Bowel: No bowel obstruction. There is mild wall thickening about the rectum. The appendix is normal. Portions of the colon are decompressed, limiting assessment. Musculoskeletal: Unremarkable. Soft tissues: Small fat containing umbilical hernia. Lungs: The lung bases are clear. Impression: 1. Mild wall thickening of the rectum, possibly reflecting a proctitis in the appropriate clinical se tting. 2. Additional findings as detailed. 3. If there is persistent clinical concern for GI bleed, a CTA of the abdomen / pelvis may be benefic ial in further assessment.
[2025-07-10 23:35] LABS: Urine Protein, UAD Negative (Negative)
[2025-07-10] MEDS: cefTRIAXone 1GM/50ML D5W 50 ML IV ONE (23:56)
[2025-07-10] MEDS: PANTOPRAZOLE 40mg/50ML NS AE 50 ML IV SCH (23:56)
[2025-07-10] MEDS: ACCU-CHEK COMFORT CURVE STRIP VI SCH (23:58)
[2025-07-11] VITALS (11 sets, daily range): BP systolic 91–126; BP diastolic 30–74; PULSE 73–105; RESP 11–20; TEMP 98–98.7; O2SAT 97–99
[2025-07-11] MEDS: InsuLIN REG 1unit/0.01ml Soln (100units/ml) SC SCH (00:04)
[2025-07-11] MEDS: SODIUM CHLORIDE 0.9% 1,000 ML IV ONE (00:07)
[2025-07-11 04:27] LABS: Hematocrit 19.0 % (36.0-46.0); Mean Corpuscular Hemoglobin 29.1 pg (28.0-32.0); Mean Corpuscular Volume 85.0 fL (80.0-100.0); Nucleated Red Blood Cells % 0.1 %
[2025-07-11 04:29] LABS: Hemoglobin 6.5 g/dL (12.2-16.2)
[2025-07-11 04:43] LABS: Alanine Aminotransferase 29 U/L (7-40); Albumin 3.1 g/dL (3.2-4.8); Alkaline Phosphatase 116 U/L (46-116); Anion Gap 7 (5-15); BUN/Creatinine Ratio 29.5 (10.0-20.0); Bilirubin, Total 0.3 mg/dL (0.2-1.0); Blood Urea Nitrogen 18 mg/dL (9-23); Calcium 7.9 mg/dL (8.7-10.4); Carbon Dioxide 24 mmol/L (20-31); Chloride 103 mmol/L (98-107); Glucose 184 mg/dL (74-106); Potassium 4.5 mmol/L (3.5-5.1); Sodium 134 mmol/L (136-145); Total Protein 5.2 g/dL (5.7-8.2)
--- NOTE | 2025-07-11 08:28 | DVHPNRES ---
Progress Note Date Seen: Jul 11, 2025 Resident Creating Document: JOE NICHOLS RESIDENT Medical Necessity Reason Pt with a Central, PICC or Fol: No (Son and ) Subjective Review of Systems Raphael Kessler is a 65-year-old female with past medical history of NIDDM, HLD, hypothyroidism, hypotension, presented to the ER with chief complain of dizziness, nausea, vomiting. Dizziness episode started day before admission, on standing up from lying position, she felt the room was spinning. Dizziness was followed by episode of vomiting. She vomited blood twice, 3-4 glass full of blood with clots. She also complained of dark stools since 2 days before admission. No history of fever, chills, travel, diarrhea, constipation, pain abdomen. Social history: Nonsmoker, no alcohol, no recreational drug use Home medication: glimepiride, levothyroxine, metformin, Pravachol, losartan ROS: Constitutional: Denies weight loss, fever and chills. HEENT: Denies changes in vision and hearing. Respiratory: Denies shortness of breath and cough Cardiovascular: Denies chest discomfort or palpitations GI: Nausea, vomiting : Denies dysuria and urinary frequency. Musculoskeletal: Denies myalgias and joint pain Skin: Denies rash and pruritus. Neurological: Dizziness 07/11/2025: She was examined at bedside today. Vitals show tachycardia. Her nausea vomiting have resolved. GI on board for possible esophageal variceal bleed. Objective vital signs Vital Sign Date Time Temp Pulse Resp B/P (MAP) Pulse Ox O2 Delivery O2 Flow Rate FiO2 07/11/25 08:12 98.7 86 14 91/38 98.7 07/10/25 23:50 99 Room Air Total Intake and Output 07/10/25 07/10/25 07/11/25 15:00 23:00 07:00 Intake Total 300 ml Balance 300 ml medications Current Medications Medications Dose Ordered Sig/Annie Route Start Time Stop Time Status Last Admin Dose Admin Diagnostic Test (Pha) 1 strip Q6HR 07/11/25 00:00 07/11/25 06:09 1 STRIP Insulin Human Regular Q6HR SC 07/11/25 00:00 07/11/25 06:17 3 UNITS Dextrose 50 ml UD PRN IV 07/10/25 20:15 Ondansetron HCl 4 mg Q4HP PRN IV 07/10/25 20:15 Pantoprazole Sodium 50 ml @ 10 mls/hr Q5H IV 07/10/25 21:30 07/11/25 02:31 10 MLS/HR Ceftriaxone Sodium 50 ml @ 100 mls/hr DAILY@09 IV 07/11/25 09:00 Examination General: Patient alert and oriented in person, place and time. Patient following commands. HEENT: Normocephalic, atraumatic, moist mucous membranes Respiratory/pulmonary: Clear lungs bilaterally, vesicular murmurs present in almost all lung mueller, no associated crackles or wheezes. Cardiovascular: Tachycardia. Normal heart sounds S1 and S2 with no associated murmurs Abdomen: Abdomen nondistended, there is no pain to palpation in any of the abdominal quadrants, no palpable masses. Extremities: There is no peripheral edema present at the lower extremities. Peripheral Pulses: 3+ Radial (R). 3+ Radial (L). 3+ Dorsalis pedis (R). 3+ Dorsalis pedis(L) Skin: No rashes or pruritus, there is no sacral edema present at this time. 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 Hemorrhoids 11 o'clock grade 1 laboratory and microbiology Laboratory Tests 07/11/25 03:43 Test 07/11/25 03:43 Range/Units Serum Glucose 184 H 74-106 mg/dL Problem List/Assessment/Plan Problem List/Assessment/Plan Esophageal variceal bleed, possible History of esophageal varices Acute GI bleed Autoimmune Cirrhosis, likely Acute anemia requiring blood transfusion CT abdomen shows: Mild wall thickening of the rectum, possibly reflecting a proctitis in the appropriate clinical setting. nodular hepatic contour. Small spleen 140, cholelithiasis, trace mesenteric stranding, small fat containing umbilical hernia. EGD in 2019 revealed esophageal varices Continue IV ceftriaxone Administered pRBC Managed with IV octreotide, Protonix GI on board, planned EGD today Diabetes mellitus Continue sliding scale insulin Obesity class 1 History of H pylori infection DIET: Regular Liquid GI PROPHYLAXIS: Protonix CODE STATUS: Goals of care discussed with patient at bedside for more than 25 minutes. Full code DISPOSITION: Med/surge Patient's status and plan discussed with the patient. Case discussed with Dr. Phoenix. Plan discussed with: Patient Date of Service: Jul 11, 2025 Billing Provider: ELAINA PHOENIX MD Common Visit Codes: [id number] INP/OBS CARE(HIGH) JOE NICHOLS RESIDENT Jul 11, 2025 08:28 ELAINA PHOENIX MD Jul 12, 2025 23:16
[2025-07-11] MEDS: cefTRIAXone 1GM/50ML D5W 50 ML IV SCH (10:15)
--- NOTE | 2025-07-11 13:35 | DVHINCON2 ---
GI Consult Consult Note GI consult note Date of Consultation: 07/11/2025 Chief Complaint: GI bleed Referring Physician: Sher GUPTA H&P: 65-year-old Vincentian-speaking patient family at bedside translating presented to ER with complains of GI bleed.. Patient had two episodes of hematemesis yesterday. No nausea or vomiting today. Also complaining of black stool for the past two days. Denies abdominal. No history of alcohol. Denies history of hepatitis. Status post EGD colonoscopy by Dr. Pierre Delgado in August 2025, and was found to have varices. No blood thinners Past Medical History: Hypertension, dyslipidemia, thyroid, diabetes mellitus Past Surgical History: Denies Social History: NO smoking, drinking ETOH and use of illegal drugs. Family History: Noncontributory Review of Systems: Constitutional: no fever, chill, weight loss HEENT: no eye pain, no hearing loss, no oral lesion, no scleral icterus Heart: no chest pain, no chest pressure Lung: no cough, no dyspnea with exertion Abdomen: see HPI Physical exam: General: NAD, AAOX3 Chest: lung mueller clear to auscultation Heart: RRR, no murmur Abdomen: non-distended, no tenderness to palpation, +BS Labs: Labs Test 07/11/25 12:39 07/11/25 03:43 07/10/25 22:21 07/10/25 19:16 Range/Units POC Glucose 129 H 70-106 mg/dl White Blood Count 11.2 #H 4.4-10.8 10^3/uL Red Blood Count 2.24 L 4.0-5.20 10^6/uL Hemoglobin 6.5 #*L 12.2-16.2 g/dL Hematocrit 19.0 #L 36.0-46.0 % Mean Corpuscular Volume 85.0 80.0-100.0 fL Mean Corpuscular Hemoglobin 29.1 28.0-32.0 pg Mean Corpuscular Hemoglobin Concent 34.3 32.0-36.0 g/dL Red Cell Distribution Width 16.2 H 11.8-14.3 % Platelet Count 124 L 140-450 10^3/uL Mean Platelet Volume 8.1 6.9-10.8 fL Neutrophils (%) (Auto) 58.4 37.0-80.0 % Lymphocytes (%) (Auto) 36.0 10.0-50.0 % Monocytes (%) (Auto) 4.9 0.0-12.0 % Eosinophils (%) (Auto) 0.4 0.0-7.0 % Basophils (%) (Auto) 0.3 0.0-2.0 % Neutrophils # (Auto) 6.5 1.6-8.6 10 ^3/uL Lymphocytes # (Auto) 4.0 0.4-5.4 10 ^3/uL Monocytes # (Auto) 0.6 0-1.3 10 ^3/uL Eosinophils # (Auto) 0 0-0.8 10 ^3/uL Basophils # (Auto) 0 0-0.2 10 ^3/uL Nucleated Red Blood Cells 0.1 % Sodium Level 134 L 136-145 mmol/L Potassium Level 4.5 3.5-5.1 mmol/L Chloride Level 103 98-107 mmol/L Carbon Dioxide Level 24 20-31 mmol/L Anion Gap 7 5-15 Blood Urea Nitrogen 18 9-23 mg/dL Creatinine 0.61 0.550-1.02 mg/dL Glomerular Filtration Rate Calc 99 >90 mL/min BUN/Creatinine Ratio 29.5 H 10.0-20.0 Serum Glucose 184 H 74-106 mg/dL Calcium Level 7.9 L 8.7-10.4 mg/dL Total Bilirubin 0.3 0.2-1.0 mg/dL Aspartate Amino Transferase (AST) 34 13-40 U/L Alanine Aminotransferase (ALT) 29 7-40 U/L Alkaline Phosphatase 116 46-116 U/L Total Protein 5.2 L 5.7-8.2 g/dL Albumin 3.1 L 3.2-4.8 g/dL Urine Color Light-yellow Yellow Urine Clarity Clear Clear Urine pH 5.5 5.0-9.0 Urine Specific [place] 1.019 1.001-1.035 Urine Protein Negative Negative Urine Ketones Negative Negative Urine Blood Negative Negative /uL Urine Nitrite Negative Negative Urine Bilirubin Negative Negative Urine Urobilinogen Normal Negative mg/dL Urine Leukocyte Esterase 3+ Negative /uL Urine RBC None seen 0 - 4 /hpf Urine Microscopic WBC 20 H 0-5 /HPF Urine Squamous Epithelial Cells Few <5 /hpf Urine Bacteria None seen None Seen /hpf Urine Glucose 3+ H Normal mg/dL Prothrombin Time 11.2 9.3-11.8 sec Prothrombin Time INR 1.06 0.9-1.15 Activated Partial Thromboplast Time 22.4 L 24.5-34.5 SEC Direct Bilirubin 0.1 <0.3 mg/dL Lipase 38 12-53 U/L Imaging: CT abdomen pelvis Impression: 1. Mild wall thickening of the rectum, possibly reflecting a proctitis in the appropriate clinical setting. 2. Additional findings as detailed. 3. If there is persistent clinical concern for GI bleed, a CTA of the abdomen / pelvis may be beneficial in further assessment. Assessment: GI bleed Severe anemia History of varices Cholelithiasis Abnormal CT imaging of liver Plan: Discussed with Dr. Brown - Pt will be scheduled for an EGD today 07/11/2025. Pt was informed of the risks (bleeding, infection, perforation, reaction to sedation medications and cardiopulmonary arrest) and benefit and is agreeable to undergo the procedures. Monitor H&H, patient is status post 2 units transfused is waiting to get her blood checked again Continue NPO Protonix and Zofran Plan discussed with patient and family at bedside and RN Thank you for this consult Date of Service: Jul 11, 2025 Billing Provider: KATH RIZVI Common Visit Codes: CONSULT ONLY Consultation Codes: [id number] CONSULT <60MIN KATH IRZVI Jul 11, 2025 13:35
[2025-07-11] MEDS: fentaNYL CITRATE 100 MCG/2 ML VL ONE (17:51)
[2025-07-11] MEDS: LIDOCAINE VISCOUS 2% 15ML UD ONE (17:51)
[2025-07-11] MEDS: diphenhdrAMINE HCL 50 MG/1 ML VL ONE (17:51)
[2025-07-11] MEDS: MIDAZOLAM HCL 5 MG/ML-1ML VIAL ONE (17:51)
--- NOTE | 2025-07-11 18:00 | DVHOP2 ---
Operative Report DATE OF OPERATION: 07/11/25 PROCEDURE: Upper Endoscopy with biopsy. PREOPERATIVE INDICATION: The patient is a 65 -year-old female undergoing endoscopy for upper GI bleed and melena POSTOPERATIVE DIAGNOSES: 1. 1+ distal esophageal varices that flattened with insufflation with no stigmata of recent bleeding from varices 2. [id number] portal hypertension gastropathy with hyperemia erythema likely source of oozing 3. Otherwise normal examination up to the 2nd and 3rd part of the duodenum with no active bleeding at this time PROCEDURE PERFORMED BY: Eloisa Brown GI NURSE: Alissa SCOPE: Olympus videoendoscope. ASA CLASS: 3. PREOPERATIVE MEDICATIONS: Versed 2 mg, Fentanyl 50 mcg, Benadryl 25 mg I administered moderate sedation throughout this _7_ minutes procedure. An independent trained observer pushed medications at my direction, and monitored the patient's level of consciousness and physiological status throughout. PROCEDURE IN DETAIL: After obtaining an informed consent, the patient was placed on left lateral decubitus position. The patient was then sedated with the above medications. A bite block was placed between her teeth. The endoscope was then passed through the oropharynx, into the esophagus, and through the stomach and pylorus up to the second and third part of the duodenum. The endoscope was then withdrawn. The 2nd and 3rd part of the duodenal and the duodenal bulb were normal. Duodenal biopsies were obtained The pre-pyloric area antrum and body showed [id number] portal hypertension gastropathy with hyperemia erythema and increase oozing from biopsy sites On retroflexion the fundus and cardia were otherwise normal there was no gastric varices. There was no fresh or old blood in the upper GI tract The endoscope was then withdrawn into distal esophagus where the patient 1+ distal esophageal varices which flattened with insufflation with no stigmata of recent variceal bleeding The remaining proximal esophagus and oropharynx were unremarkable. The patient tolerated the procedure well without difficulty. COMPLICATIONS : None SPECIMENS: Duodenal biopsies Gastric biopsies DISPOSITION: Transfer back to the floor Stable PLAN: 1. Await for biopsy result 2. Will place pt on Protonix 40 mg bid 3. Carafate suspension 1 g 4 times a day 4. DC aspirin NSAIDs smoking alcohol 5. Full liquid diet advance to soft mechanical 6. Patient needs outpatient follow up with GI Services for ongoing management of her cirrhosis ELOISA BROWN MD Jul 11, 2025 18:00
--- NOTE | 2025-07-11 19:04 | DVH ---
CHEST RADIOGRAPH Indication: EGD Technique: Single frontal view of the chest was obtained COMPARISON: None FINDINGS: Lines and Tubes: None Lungs: Mild interstitial pulmonary edema Pleura: No effusion. No pneumothorax. Cardiomediastinal contours: Unremarkable Bones: Unremarkable IMPRESSION: 1. Mild interstitial pulmonary edema
[2025-07-11] MEDS: OCTREOTIDE ACETATE 100 MCG in SODIUM CHL 0.9% 50 ML IV ONE (19:51)
[2025-07-11 19:55] LABS: Hematocrit 28.3 % (36.0-46.0); Hemoglobin 9.5 g/dL (12.2-16.2)
[2025-07-11] MEDS: OCTREOTIDE ACETATE 500 MCG in SODIUM CHL 0.9% 99 ML IV SCH (20:18)
[2025-07-11] MEDS: SUCRALFATE 1 GM/10 ML ORAL SUSP PO SCH (22:53)
[2025-07-12 01:00] VITALS: BP 96/59; PULSE 77; RESP 18; TEMP 98.1; O2SAT 94
[2025-07-12 05:00] VITALS: BP 123/64; PULSE 78; RESP 18; TEMP 97.5; O2SAT 94
[2025-07-12 07:09] LABS: Hematocrit 28.2 % (36.0-46.0); Hemoglobin 9.9 g/dL (12.2-16.2); Mean Corpuscular Hemoglobin 29.8 pg (28.0-32.0); Mean Corpuscular Volume 85.0 fL (80.0-100.0); Nucleated Red Blood Cells % 0.2 %
[2025-07-12 07:24] LABS: Chloride 106 mmol/L (98-107); Potassium 4.2 mmol/L (3.5-5.1); Sodium 138 mmol/L (136-145)
[2025-07-12 07:25] LABS: Anion Gap 8 (5-15); Carbon Dioxide 24 mmol/L (20-31)
[2025-07-12 07:30] LABS: BUN/Creatinine Ratio 15.8 (10.0-20.0); Blood Urea Nitrogen 12 mg/dL (9-23); Calcium 7.9 mg/dL (8.7-10.4); Glucose 151 mg/dL (74-106)
[2025-07-12 08:00] VITALS: PULSE 82; RESP 18; O2SAT 98
[2025-07-12 08:22] VITALS: BP 127/80; PULSE 82; RESP 18; TEMP 98.5; O2SAT 94
[2025-07-12 12:46] VITALS: BP 139/83; PULSE 81; RESP 18; TEMP 97.8; O2SAT 96
[2025-07-12 13:06] VITALS: BP 127/80; PULSE 82; RESP 18; TEMP 98.5; O2SAT 98
[2025-07-12] MEDS ORDERED: PANT40TA2 PO (13:52)
[2025-07-12] MEDS ORDERED: SUCR1TAB31 OR (13:52)
--- NOTE | 2025-07-12 13:57 | DVHDSRES ---
Discharge Summary Date of Admission Resident Creating Document: JOE NICHOLS RESIDENT Jul 10, 2025 at 20:06 Date of Discharge: Jul 12, 2025 Labs/Diagnostic Data: Laboratory Results Test 07/12/25 05:45 07/12/25 05:36 07/11/25 03:43 07/10/25 22:21 POC Glucose 179 mg/dl (70-106) White Blood Count 5.1 10^3/uL (4.4-10.8) Red Blood Count 3.31 10^6/uL (4.0-5.20) Hemoglobin 9.9 g/dL (12.2-16.2) Hematocrit 28.2 % (36.0-46.0) Mean Corpuscular Volume 85.0 fL (80.0-100.0) Mean Corpuscular Hemoglobin 29.8 pg (28.0-32.0) Mean Corpuscular Hemoglobin Concent 35.1 g/dL (32.0-36.0) Red Cell Distribution Width 17.3 % (11.8-14.3) Platelet Count 107 10^3/uL (140-450) Mean Platelet Volume 7.9 fL (6.9-10.8) Neutrophils (%) (Auto) 56.7 % (37.0-80.0) Lymphocytes (%) (Auto) 35.8 % (10.0-50.0) Monocytes (%) (Auto) 5.6 % (0.0-12.0) Eosinophils (%) (Auto) 1.5 % (0.0-7.0) Basophils (%) (Auto) 0.4 % (0.0-2.0) Neutrophils # (Auto) 2.9 10 ^3/uL (1.6-8.6) Lymphocytes # (Auto) 1.8 10 ^3/uL (0.4-5.4) Monocytes # (Auto) 0.3 10 ^3/uL (0-1.3) Eosinophils # (Auto) 0.1 10 ^3/uL (0-0.8) Basophils # (Auto) 0 10 ^3/uL (0-0.2) Nucleated Red Blood Cells 0.2 % Sodium Level 138 mmol/L (136-145) Potassium Level 4.2 mmol/L (3.5-5.1) Chloride Level 106 mmol/L (98-107) Carbon Dioxide Level 24 mmol/L (20-31) Anion Gap 8 (5-15) Blood Urea Nitrogen 12 mg/dL (9-23) Creatinine 0.76 mg/dL (0.550-1.02) Glomerular Filtration Rate Calc 87 mL/min (>90) BUN/Creatinine Ratio 15.8 (10.0-20.0) Serum Glucose 151 mg/dL (74-106) Calcium Level 7.9 mg/dL (8.7-10.4) Total Bilirubin 0.3 mg/dL (0.2-1.0) Aspartate Amino Transferase (AST) 34 U/L (13-40) Alanine Aminotransferase (ALT) 29 U/L (7-40) Alkaline Phosphatase 116 U/L (46-116) Total Protein 5.2 g/dL (5.7-8.2) Albumin 3.1 g/dL (3.2-4.8) Urine Color Light-yellow (Yellow) Urine Clarity Clear (Clear) Urine pH 5.5 (5.0-9.0) Urine Specific [place] 1.019 (1.001-1.035) Urine Protein Negative (Negative) Urine Ketones Negative (Negative) Urine Blood Negative /uL (Negative) Urine Nitrite Negative (Negative) Urine Bilirubin Negative (Negative) Urine Urobilinogen Normal mg/dL (Negative) Urine Leukocyte Esterase 3+ /uL (Negative) Urine RBC None seen /hpf (0 - 4) Urine Microscopic WBC 20 /HPF (0-5) Urine Squamous Epithelial Cells Few /hpf (<5) Urine Bacteria None seen /hpf (None Seen) Urine Glucose 3+ mg/dL (Normal) Test 07/10/25 19:16 Prothrombin Time 11.2 sec (9.3-11.8) Prothrombin Time INR 1.06 (0.9-1.15) Activated Partial Thromboplast Time 22.4 SEC (24.5-34.5) Direct Bilirubin 0.1 mg/dL (<0.3) Lipase 38 U/L (12-53) Other Laboratory Tests 07/12/25 05:36 Brief Hx & Hospital Course: Brief history on arrival: Raphael Kessler is a 65-year-old female with past medical history of NIDDM, HLD, hypothyroidism, hypotension, presented to the ER with chief complain of dizziness, nausea, vomiting. Dizziness episode started a day before admission, on standing up from lying position, she felt the room was spinning. Dizziness was followed by episode of vomiting. She vomited blood twice, 3-4 glass full of blood with clots. She also complained of dark stools since 2 days before admission. No history of fever, chills, travel, diarrhea, constipation, pain abdomen. Hospital course: Patient was admitted along the lines of acute anemia due to GI bleed. CT abdomen was done, showing nodular hepatic contour. She was transfused packed RBCs. started on IV ceftriaxone, octreotide, Protonix. GI was consulted. EGD, was done revealing distal esophageal varices that flattened with insufflation with no stigmata of recent bleeding from varices, [id number] portal hypertension gastropathy with hyperemia erythema likely source of oozing. Her EGD showed otherwise normal examination up to the 2nd and 3rd part of the duodenum with no active bleeding at this time. Biopsy results pending. Her hemoglobin is trending up, vitals are stable. She is stable for discharge will continue oral Protonix, sucralfate and will follow closely with GI and PCP for further management after biopsy results. 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 Please follow-up with GI outpatient. 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, possible Moderate to severe Portal hypertension Diabetes mellitus Obesity class 1 History of H pylori infection Cholelithiasis Discharge Disposition: Home Discharge Instruct/Medications Diet: Consistent carbohydrate, Cardiac 2g Na,low cholest Diet comment: and Consistent Carbohydrate Activity: No Restrictions, As Tolerated Follow Up/Referral: F/up with PCP in 1 week F/up with GI outpatient Medications: Continue oral protonix, sucralfate as prescribed Continiue Home medication New Medications: Pantoprazole Sodium Sesquihydr (Protonix) 40 Mg Tab 40 MG PO DAILY for 30 Days, #30 TAB Sucralfate (Carafate) 1 Gm Tab 1 GM OR QID for 10 Days, #40 TAB Scheduled Aspirin (Aspir-Low), 81 MG PO DAILY, (Reported) Ferrous Sulfate (Ferrous Sulfate), 325 MG PO DAILY Levothyroxine Sodium (Levothyroxine Sodium), 50 MCG PO QAM, (Reported) Metformin Hydrochloride (Metformin Hcl), 1 TAB PO BID, (Reported) Pantoprazole Sodium Sesquihydr (Protonix), 40 MG PO DAILY Pravastatin Sodium (Pravachol Tablet), 1 TAB PO DAILY, (Reported) Sucralfate (Carafate), 1 GM OR QID Discharge Statement: "Patient was advised to return to the ER or call 911 if any headaches, dizziness, shortness of breath, chest pain, abdominal pain, bleeding, fevers, or worsening of medical condition. Patient was counseled about treatment plan, medications, possible side effects, patientverbalized understanding. All questions were answered to the best of my ability. This discharge took greater then 30 minutes in planning, reviewing documentation, counseling the patient, and discussing with other team members." ASSESSMENT ASSESSMENT Assessment Acute anemia d/t GI bleed Date of Service: Jul 12, 2025 Billing Provider: ELAINA SIMONS MD Common Visit Codes: 17845-BMI/OBS DISCH DAY >30min JOE NICHOLS Jul 12, 2025 13:57 ELAINA SIMONS MD Jul 12, 2025 22:24
[2025-07-12] MEDS ORDERED: FER325T PO (15:05)
--- NOTE | 2025-07-12 18:41 | DVHPN2 ---
Progress Note - Dictate Date Seen: Jul 12, 2025 (Late entry Time of visit 1:00 p.m.) Medical Necessity Reason Pt with a Central, PICC or Fol: No (Son and ) Subjective Her hemoglobin is trending up, vitals are stable. Patient is tolerating a full liquid diet vital signs Vital Sign Date Time Temp Pulse Resp B/P (MAP) Pulse Ox O2 Delivery O2 Flow Rate FiO2 07/12/25 13:06 98.5 82 18 98 07/12/25 12:46 139/83 (101) 07/12/25 08:00 Room Air* 0 21 Total Intake and Output 07/11/25 07/11/25 07/12/25 14:59 22:59 06:59 Intake Total 1260 ml 51 ml 990 ml Output Total 0 ml 3 ml Balance 1260 ml 48 ml 990 ml objective General: NAD, AAOX3 Chest: lung mueller clear to auscultation Heart: RRR, no murmur Abdomen: non-distended, no tenderness to palpation, +BS laboratory and microbiology Laboratory Tests 07/12/25 05:36 Test 07/12/25 05:36 Range/Units Serum Glucose 151 H 74-106 mg/dL Problems(with codes): (1) Portal hypertension (2) Esophageal varices determined by endoscopy (3) Cirrhosis (4) Upper GI bleed (5) Vomiting blood (6) Anemia (7) Melena Prognosis Plan Discharge planning is in progress Protonix 40 mg p.o. twice a day Carafate 1 g p.o. twice a day Soft mechanical diet Avoid aspirin NSAIDs smoking alcohol Outpatient follow up with GI Services for liver cirrhosis management Plan discussed with: Patient CC Plasma Assessment Blood Product Administration S: [id number] ELOISA BLAND MD Jul 12, 2025 18:41
--- NOTE | 2025-07-13 14:06 | ECG ---
[facility] Test Date: 2025-07-10 Test Time: 17:57:54 Pat Name: TINO ELISE Department: ED Room: 0212 Gender: F Claim Professional: fabian : [id number] Requested By: MAYTE ZALDIVAR Order Number: [id number] Reading MD: Measurements Intervals [place] Rate: 106 P: 61 VT: 123 QRS: 19 QRSD: 78 T: 32 QT: 349 QTc: 464 Interpretive Statements Sinus tachycardia Borderline repol abnrm, anterolateral leads Baseline wander in lead(s) I,III,aVL,V1,V3,V4,V5,V6 Please click the below link to view image of tracing.
== END 2025-07-12 14:15 | disposition home or self-care (01) | DRG 378 ==
LOC: ER 17:53 → OVERFLOW 20:06 → CENTRAL 07-11 14:24
PROVIDERS: ADMIT Student in an Organized Health Care Education/Training Program; ATTEND Student in an Organized Health Care Education/Training Program
PROC: 30233N1 Transfusion of Nonautologous Red Blood Cells into Peripheral Vein, Percutaneous Approach (ICD-10-PCS; 2025-07-11)
PROC: 0DB68ZX Excision of Stomach, Via Natural or Artificial Opening Endoscopic, Diagnostic (ICD-10-PCS; 2025-07-11)
PROC: 0DB98ZX Excision of Duodenum, Via Natural or Artificial Opening Endoscopic, Diagnostic (ICD-10-PCS; principal; 2025-07-11 17:48)
DX: K92.2 Gastrointestinal hemorrhage, unspecified (principal); K76.6 Portal hypertension; D64.9 Anemia, unspecified; K31.9 Disease of stomach and duodenum, unspecified; K92.0 Hematemesis; E11.9 Type 2 diabetes mellitus without complications; K80.20 Calculus of gallbladder without cholecystitis without obstruction; K74.69 Other cirrhosis of liver; I10 Essential (primary) hypertension; E78.5 Hyperlipidemia, unspecified; E66.811 Obesity, class 1; Z79.82 Long term (current) use of aspirin; Z79.84 Long term (current) use of oral hypoglycemic drugs; Z79.899 Other long term (current) drug therapy; Z68.34 Body mass index [BMI] 34.0-34.9, adult
CPT/HCPCS: 36415; 43239; 71045; 74176; 80048; 80053; 80076; 81001; 82962; 83690; 85014; 85018; 85025; 85610; 85730; 86850; 86900; 86901; 86920; 87040; 93005; 96361; 96374; 96375; 99291; G0378; J1815; J2250; J2405; J2470

== ENCOUNTER 2025-09-27 06:12 | Outpatient (CLI) | payer BC ==
[~2025-09-27 06:12] MED LIST changes: +FER325T PO; +PANT40TA2 PO; +SUCR1TAB31 OR
[2025-09-27 07:08] LABS: INR 1.05 (0.9-1.15); Partial Thromboplastin Time 25.9 SEC (24.5-34.5); Prothrombin Time 11.1 sec (9.3-11.8)
[2025-09-27 07:26] LABS: Alanine Aminotransferase 34.0 U/L (7-40); Albumin 3.9 g/dL (3.2-4.8); Bilirubin, Direct 0.1 mg/dL (<0.3); Bilirubin, Total 0.5 mg/dL (0.2-1.0); Total Protein 7.5 g/dL (5.7-8.2)
[2025-09-27 07:28] LABS: Alkaline Phosphatase 167.0 U/L (46-116)
== END 2025-09-27 17:00 | disposition home or self-care (01) ==
LOC: LAB 06:12
PROVIDERS: ATTEND Specialist
DX: K76.0 Fatty (change of) liver, not elsewhere classified (principal)
CPT/HCPCS: 36415; 80076; 82105; 85610; 85730